=== PATIENT | female | born 1955 | race Caucasian/White ===

== ENCOUNTER → 2019-10-24 | Outpatient (CLI) | payer OTHER | END | disposition home or self-care (01) | LOC: RAD 07:49 | PROVIDERS: ATTEND Family Medicine | DX: Z12.31 Encounter for screening mammogram for malignant neoplasm of breast (principal) | CPT/HCPCS: 77067 ==

== ENCOUNTER → 2019-10-24 | Outpatient (CLI) | payer OTHER ==
[2019-10-24 07:46] LABS: ALANINE AMINOTRANSFERASE 34 U/L (12-78); ANION GAP 6 mmol/L (5-15); CALCIUM 9.1 mg/dL (8.5-10.1); CHLORIDE 109 mmol/L (98-107); CHOLESTEROL, TOTAL 214 mg/dL (140-239); CREATININE 0.82 mg/dL (0.55-1.02)
[2019-10-24 07:48] LABS: ALKALINE PHOSPHATASE 88 U/L (45-117); BILIRUBIN,TOTAL 0.3 mg/dL (0.2-1.0); TOTAL PROTEIN 7.7 g/dL (6.4-8.2); TRIGLYCERIDES 83 mg/dL (50-200)
[2019-10-24 07:49] LABS: CHOL/HDL RATIO 2.9; HDL CHOL % 35 % (28-40); HDL CHOLESTEROL (DIRECT) 75 mg/dL (40-60); LDL CHOLESTEROL,CALCULATED 122 mg/dL (54-169); LDL/HDL RATIO 1.6 (0.5-3.0); VLDL CHOLESTEROL 17 mg/dL (0-25)
== END | disposition home or self-care (01) ==
LOC: LAB 07:21
PROVIDERS: ATTEND Family Medicine
DX: Z11.59 Encounter for screening for other viral diseases (principal); R03.0 Elevated blood-pressure reading, without diagnosis of hypertension
CPT/HCPCS: 36415; 80053; 80061; 83036; 86803

== ENCOUNTER 2021-01-27 08:39 | Day surgery (SDC) | payer OTHER ==
[~2021-01-27] VITALS: Ht 162.6 cm; Wt 87.2 kg
[~2021-01-27 08:39] MED LIST: NONE PER PT
[2021-01-27 09:04] VITALS: BP 168/101
[2021-01-27] MEDS ORDERED: FENTANYL PF 100 MCG/2ML ONE (09:05)
[2021-01-27] MEDS ORDERED: CHLORHEXIDINE 15 ML UDC ONE (09:13)
[2021-01-27] MEDS ORDERED: BUPIVACAINE/PF 0.5% ONE (09:30)
[2021-01-27 09:33] VITALS: BP 169/92
[2021-01-27] MEDS ORDERED: MIDAZOLAM 1 MG/ML, 2ML ONE (09:49)
[2021-01-27] MEDS ORDERED: BUPIVACAINE/PF-EPI 0.5% 1:200K INFIL ONE (09:58)
[2021-01-27] MEDS ORDERED: ONDANSETRON 2MG/ML, 2ML IVPush PRN (10:00)
[2021-01-27] MEDS ORDERED: FENTANYL PF 100 MCG/2ML IV PRN (10:00)
[2021-01-27] MEDS ORDERED: KETOROLAC 30 MG/1 ML IVPush PRN (10:00)
[2021-01-27] MEDS ORDERED: CHLORHEXIDINE 15 ML UDC PO ONE (10:00)
[2021-01-27] MEDS ORDERED: OXYcodone 5 MG/5 ML ORAL.SOL UDC PO PRN (10:00)
[2021-01-27] MEDS ORDERED: PROMETHAZINE 25 MG/ML, 1ML IVPush PRN (10:00)
[2021-01-27] MEDS ORDERED: MEPERIDINE/PF 25MG/0.5ML IVPush PRN (10:00)
[2021-01-27] MEDS ORDERED: ACETAMINOPHEN 325 MG TABLET PO PRN (10:00)
[2021-01-27] MEDS ORDERED: LACTATED RINGERS 1,000 ML IV SCH (10:00)
[2021-01-27] MEDS ORDERED: HYDROmorphone 1 MG/ML, 1ML INJ IVPush PRN (10:00)
[2021-01-27] MEDS ORDERED: DIAZEPAM 5 MG/ML, 2ML IVPush PRN (10:00)
== END 2021-01-27 11:10 | disposition home or self-care (01) ==
LOC: OUT 08:39
PROVIDERS: ATTEND Orthopaedic Surgery
DX: T84.84XA Pain due to internal orthopedic prosthetic devices, implants and grafts, initial encounter (principal); Z20.822 Contact with and (suspected) exposure to COVID-19; Z79.899 Other long term (current) drug therapy; Z88.5 Allergy status to narcotic agent; Y83.8 Other surgical procedures as the cause of abnormal reaction of the patient, or of later complication, without mention of misadventure at the time of the procedure
CPT/HCPCS: 20680; 36415; 73600; 87635; 93005; J2250; J3010; J7120; 76000